=== PATIENT | female | born 1960 | race Caucasian/White ===

== ENCOUNTER → 2017-06-04 14:45 | Outpatient (CLI) | payer MEDICAID, SELFPAY ==
--- NOTE | 2017-06-04 14:52 | XR_ITS ---
EXAM: XR lumbar spine min 4V HISTORY: ITS.REASON: CHRONIC PAIN ORDERING PHYSICIAN: Nasreen Friedman PATIENT AGE: 56 years COMPARISON: None FINDINGS: Normal alignment. No fracture or dislocation. No lytic or blastic change. Mild degenerative disc disease from T12 to S1 with small anterior osteophytes. Facet arthritic changes are present at L4-L5 and L5-S1. IMPRESSION: Mild lumbar spondylosis with degenerative disc disease and osteophytosis
--- NOTE | 2017-06-04 14:52 | XR_ITS ---
EXAM: XR thoracic spine 3V HISTORY: ITS.REASON: CHRONIC PAIN COMPARISON: None FINDINGS: Normal alignment. No fracture or dislocation. No lytic or blastic change. There is mild multilevel spondylosis with decrease in the disc spaces and minimal osteophyte formation. There is minimal gentle thoracic curvature convex left. IMPRESSION: Mild thoracic spondylosis, no acute finding
== END ==
PROVIDERS: PCP Internal Medicine Adolescent Medicine; Visit Provider Nurse Practitioner Family
DX: G89.29 Other chronic pain (principal); M54.6 Pain in thoracic spine
CPT/HCPCS: 72072; 72110

== ENCOUNTER → 2017-06-05 09:20 | Outpatient (CLI) | payer MEDICAID, SELFPAY ==
[2017-06-05 10:43] LABS: Alanine Aminotransferase 62 U/L (12-78); Albumin Level 3.7 gm/dL (3.4-5.0); Albumin/Globulin Ratio 0.9 (1.1-1.8); Alkaline Phosphatase 142 U/L (46-116); Anion Gap 11.1 mEq/L (5-15); Aspartate Amino Transferase 33 U/L (15-37); Bilirubin,Total 0.3 mg/dL (0.2-1.0); Blood Urea Nitrogen 12 mg/dL (7-18); Calcium 9.1 mg/dL (8.5-10.1); Carbon Dioxide 34 mmol/L (21.0-32.0); Chloride 103 mmol/L (98-107); Chol/HDL Ratio 2.9 (1-3.5); Cholesterol 245 mg/dL (140-200); Creatinine,Serum 0.58 mg/dL (0.55-1.02); Estimated Glomerular Filt Rate 108 ml/min (>60); GFR (African American) 131 ML/MIN (>60); Globulin 4.2 gm/dl (1.3-3.2); Glucose 92 mg/dL (74-106); HDL Cholesterol 84 mg/dL (29-89); LDL Cholesterol 148 mg/dL (0-130); Potassium 4.1 mmoL/L (3.5-5.1); Sodium 144 mmol/L (136-145); Total Protein,Serum 7.9 gm/dL (6.4-8.2); Triglycerides 66 mg/dL (30-200); VLDL Cholesterol 13 mg/dL (0-40)
== END ==
PROVIDERS: Visit Provider Nurse Practitioner Family
DX: Z00.00 Encounter for general adult medical examination without abnormal findings (principal)
CPT/HCPCS: 36415; 80053; 80061

== ENCOUNTER → 2017-07-19 08:42 | Outpatient (CLI) | payer MEDICAID, SELFPAY ==
--- NOTE | 2017-07-19 08:53 | MR_ITS ---
MR lumbar spine wo con, MR 3-d myelogram/MRCP Ordering Physician: Nasreen Friedman Patient Age: 56 years: Female HISTORY: ITS.REASON: NEUROPATHY, LUMBAGO WITH SCIATICA Bilateral leg and feet burning tingling and pain symptoms for years. TECHNIQUE: Sagittal STIR, T1, T2, axial T1 and T2. On 1.5T Siemens wide bore MRI. 3-D MR myelogram image set obtained & performed on MRI workstation. Additional sagittal thin section T2 weighted dataset obtained from this latter acquisition as well (---76 CPT) COMPARISON : Plain films lumbar spine 06/04/2017 FINDINGS Vertebral bodies appear intact no compression fracture or lesion. L5/S1 asymmetric disc bulge most evident encroaching upon left foramen.. This along with moderate prominent facet hypertrophy yields moderate left recess and foraminal encroachment. L4/5. Disc bulge with additional focal disc herniation right paracentral. Generous focal effacement thecal sac on right and displaces nerve roots on right.. Cephalad extrusion of disc nicely seen on sagittal views,. Overall the resulting defect here measuring up to 16 mm height and over ~ 6 mm mm posterior protrusion.. Generous encroachment upon the right foramen as the disc appears to abuts the right L4 nerve root . Also generous facet hypertrophy narrows the spinal canal. Overall spinal stenosis most pronounced at this level . neurosurgical consult warranted primarily for findings at this level L3/4 foraminal disc bulge most evident towards the right foramen where there seems to be additional right lateral disc protrusion. This encroaches upon the right foramen and right L3 nerve root and may encroach upon the right ganglia.. Mild facet hypertrophy. Mild spinal stenosis L2/3. Mild diffuse disc bulge. Mild facet arthropathy. Borderline spinal stenosis. L1/2. Disc intact only question scant bulge the left T12/L1. Mild hard disc to the left indenting the left aspect of thecal sac. Axial image 5 T11/12 minimal mixed disc protrusion to the right slightly limiting thecal sac to the right 3-D MRI myelogram image set demonstrates the pronounced spinal stenosis at L4/5 and the mild spinal stenosis L 3/4. L2/3 there is only mild indentation with only slight narrowing the spinal canal. ... IMPRESSION.:... Multilevel degenerative disc & lumbar spondylosis Most significant findings highlighted below: L4/5 rightward disc herniation with cephalad extrusion of disc material . Yields prominent indentation upon thecal sac the right. Also yields prominent encroachment upon the right foramen. The disc herniation along with generous facet hypertrophy yields Prominent central canal stenosis most evident this level L3/4. Disc bulge with Additional Far Lateral Right Disc Protrusion.-Most evident at and lateral to the right foramen. Moderate facet hypertrophy . Features combine to yield Mild central canal stenosis L2/3 mild disc bulge and mild facet hypertrophy. Borderline spinal stenosis minimal findings at multiple other levels as in text.
== END ==
PROVIDERS: PCP Internal Medicine Adolescent Medicine; Visit Provider Nurse Practitioner Family
DX: M54.42 Lumbago with sciatica, left side (principal); G62.9 Polyneuropathy, unspecified
CPT/HCPCS: 72148; 76376

== ENCOUNTER → 2017-09-16 14:39 | Outpatient (POV) | payer MEDICAID, SELFPAY ==
[2017-09-16 14:47] VITALS: BP 169/86; PULSE 84; RESP 18; TEMP 36.6; O2SAT 98
--- NOTE | 2017-09-16 15:27 | HMH.PMCON ---
Assessment and Plan (1) Degenerative disc disease Current visit: Yes Status: Chronic Category: Medical (2) Lumbar radiculopathy Current visit: Yes Status: Chronic Category: Medical Code(s): M54.16 - Radiculopathy, lumbar region - Assessment and plan all Dx Assessment and Plan for all problems:: We will schedule L4-L5 lumbar epidural steroid injection. Neurosurgery has recommended this prior to deciding if the patient is a surgical candidate or not. Patient and I discussed the potential need for 3 lumbar epidural steroid injections. Patient understands. I will follow-up with this patient after her injection. Patient is not on any anticoagulation therapy. Patient's tried and failed physical therapy, anti-inflammatories, medications. This note was dictated using voice recognition software and may contain errors or omissions HPI - Data of Consult Consult date: 09/16/17 Requesting Physician: Riddhi Gonzáles APRN Primary Care Provider: Nasreen Friedman APRN - Consult Narrative Reason for consult: Low back pain History of present illness: Ms. Brooks is a 56 year old female resents today for consultation in regard to her low back and bilateral leg pain. Patient has been seen by Dr. Rosenbaum and was deemed a potential surgical candidate. However, Dr. Rosenbaum would like the patient to fill epidural steroid injections prior to deciding on surgery. Patient rates her pain a 6 out of 10 mostly in her low back and radiating into her bilateral legs. Patient does have nerve impingement at L4-L5. Patient has tried and failed medications, anti-inflammatories, physical therapy. Patient would like to try injections prior to deciding on surgery. Patient states her pain is constant, achy, sharp at times. Patient states that movement and standing for long periods of time make it worse while resting can make it better. CC: Riddhi Gonzáles APRN [facility] History I have reviewed the patient's past medical history: Yes Medical History: Reports:: Heart Murmur, Hypertension Denies:: Cancer, Diabetes Mellitus Type 1, Diabetes Mellitus Type 2, MRSA Other Surgeries: Yes: Cholecystectomy, Hysterectomy-Total Amputation: No Fractures: No - *Social History Educational Level: Completed High School Smoking Status: Former smoker Alcohol Intake: never Occupational Status: disabled Housing: house - Psychiatric History Expresses thoughts of harming self/others: None Suicide Plan Description: No Plan Review of Systems - Review of Systems ROS General: no recent weight change, no fever, no sleep disturbances Respiratory: no cough, no shortness of air, no recurring pulmonary infections Cardiovascular/Peripheral Vascular: No chest pain, No palpitations, no edema, no shortness of breath. Gastrointestinal: no incontinence, normal bowel movements reported Genitourinary: no incontinence Musculoskeletal: Back pain, leg pain Psychiatric: normal mood/ affect Neurological: [denies weakness in extremities], [denies balance issues] Meds Home Medications Medication Instructions Recorded Confirmed Type Amlodipine Besylate [Amlodipine 10 mg PO DAILY 09/09/17 09/16/17 History 10mg Tab] Cetirizine HCl 10 mg PO DAILY 09/09/17 09/16/17 History Diclofenac Sodium [Diclofenac 75mg 75 mg PO BID 09/09/17 09/16/17 History Tab] Fluticasone Propionate [Flonase 2 spr NS DAILY 09/09/17 09/16/17 History 50mcg nasal spray 16gm] Gabapentin [Gabapentin 100mg Cap] 100 mg pe PO TID 09/09/17 09/16/17 History Venlafaxine HCl [Venlafaxine HCl 75 mg PO DAILY 09/09/17 09/16/17 History ER] cephALEXin [Keflex 500mg Cap] 500 mg PO BID 09/16/17 09/16/17 History Allergies Allergy/AdvReac Type Severity Reaction Status Date / Time No Known Allergies Allergy Verified 09/09/17 20:13 Objective Vital signs: Temp Pulse Resp BP Pulse Ox 97.8 F 84 18 169/86 98 09/16/17 14:47 09/16/17 14:47 09/16/17 14:47 09/16/17
--- NOTE | 2017-09-16 15:30 | P.CONS_ITS ---
Assessment and Plan (1) Degenerative disc disease Current visit: Yes Status: Chronic Category: Medical (2) Lumbar radiculopathy Current visit: Yes Status: Chronic Category: Medical Code(s): M54.16 - Radiculopathy, lumbar region - Assessment and plan all Dx Assessment and Plan for all problems:: We will schedule L4-L5 lumbar epidural steroid injection. Neurosurgery has recommended this prior to deciding if the patient is a surgical candidate or not. Patient and I discussed the potential need for 3 lumbar epidural steroid injections. Patient understands. I will follow-up with this patient after her injection. Patient is not on any anticoagulation therapy. Patient's tried and failed physical therapy, anti-inflammatories, medications. This note was dictated using voice recognition software and may contain errors or omissions HPI - Data of Consult Consult date: 09/16/17 Requesting Physician: Riddhi Gonzáles APRN Primary Care Provider: Nasreen Friedman APRN - Consult Narrative Reason for consult: Low back pain History of present illness: Ms. Brooks is a 56 year old female resents today for consultation in regard to her low back and bilateral leg pain. Patient has been seen by Dr. Rosenbaum and was deemed a potential surgical candidate. However, Dr. Rosenbaum would like the patient to fill epidural steroid injections prior to deciding on surgery. Patient rates her pain a 6 out of 10 mostly in her low back and radiating into her bilateral legs. Patient does have nerve impingement at L4-L5. Patient has tried and failed medications, anti-inflammatories, physical therapy. Patient would like to try injections prior to deciding on surgery. Patient states her pain is constant, achy, sharp at times. Patient states that movement and standing for long periods of time make it worse while resting can make it better. CC: Riddhi Gonzáles APRN [facility] History I have reviewed the patient's past medical history: Yes Medical History: Reports:: Heart Murmur, Hypertension Denies:: Cancer, Diabetes Mellitus Type 1, Diabetes Mellitus Type 2, MRSA Other Surgeries: Yes: Cholecystectomy, Hysterectomy-Total Amputation: No Fractures: No - *Social History Educational Level: Completed High School Smoking Status: Former smoker Alcohol Intake: never Occupational Status: disabled Housing: house - Psychiatric History Expresses thoughts of harming self/others: None Suicide Plan Description: No Plan Review of Systems - Review of Systems ROS General: no recent weight change, no fever, no sleep disturbances Respiratory: no cough, no shortness of air, no recurring pulmonary infections Cardiovascular/Peripheral Vascular: No chest pain, No palpitations, no edema, no shortness of breath. Gastrointestinal: no incontinence, normal bowel movements reported Genitourinary: no incontinence Musculoskeletal: Back pain, leg pain Psychiatric: normal mood/ affect Neurological: [denies weakness in extremities], [denies balance issues] Meds Home Medications Medication Instructions Recorded Confirmed Type Amlodipine Besylate [Amlodipine 10 mg PO DAILY 09/09/17 09/16/17 History 10mg Tab] Cetirizine HCl 10 mg PO DAILY 09/09/17 09/16/17 History Diclofenac Sodium [Diclofenac 75mg 75 mg PO BID 09/09/17 09/16/17 History Tab] Fluticasone Propionate [Flonase 2 spr NS DAILY 09/09/17 09/16/17 History 50mcg nasal spray 16gm] Gabapentin [Gabapentin 100mg Cap] 10
== END ==
PROVIDERS: PCP Nurse Practitioner Family; Visit Provider Clinical Nurse Specialist Family Health
DX: M54.16 Radiculopathy, lumbar region (principal)
CPT/HCPCS: 99202

== ENCOUNTER → 2017-11-04 14:04 | Outpatient (POV) | payer MEDICAID, SELFPAY ==
[2017-11-04 14:34] VITALS: BP 133/78; PULSE 73; RESP 18; O2SAT 98; BMI 36.2
--- NOTE | 2017-11-04 14:46 | HMH.PAINSOAP ---
[facility] Pain Management SOAP Note Subjective:: Patient is a pleasant 56-year-old white female who presents today for follow-up after lumbar epidural steroid injection. Patient states she got relief after her injection. Patient's nurse Dr. Rosenbaum wanted her to try injections prior to determining if she was a surgical candidate or not. Patient would like to try one more injection in order to rule out their benefit for her. She rates her pain a 6 out of 10 and states that it travels down both of her legs the worst being the right. Patient also having muscle spasms. Patient states they are worse at nighttime. Patient has not taken anything for this. Patient does not have any known allergies. ROS General: no recent weight change, no fever, no sleep disturbances Respiratory: no cough, no shortness of air, no recurring pulmonary infections Cardiovascular/Peripheral Vascular: No chest pain, No palpitations, no edema, no shortness of breath. Gastrointestinal: no incontinence, normal bowel movements reported Genitourinary: no incontinence Musculoskeletal: Back pain, leg pain Psychiatric: normal mood/ affect Neurological: [denies weakness in extremities], [denies balance issues] Objective:: Physical Exam General: Alert and oriented x3, no acute distress, pleasant and cooperative, [on room air] Lungs: Resps E/U, Symmetrical chest expansion, Eyes: PERRL Musculoskeletal: Flexion and extension of lumbar spine somewhat guarded secondary to pain, deep tendon reflexes normal, strength in upper and lower extremities [5/5], [abnormal gait noted] Neurological: speech clear, milk receiver equal, no gross sensory deficits Assessment:: Degenerative disc disease of lumbar spine with lumbar radiculopathy Plan:: We will schedule a repeat epidural injection we will do levels L3-L4 for the patient. Patient is not on any anticoagulation therapy. Patient's tried and failed physical therapy and anti-inflammatories, medications. This note was dictated using voice recognition software and may contain errors or omissions
--- NOTE | 2017-11-04 14:49 | P.CONS_ITS ---
[facility] Pain Management SOAP Note Subjective:: Patient is a pleasant 56-year-old white female who presents today for follow-up after lumbar epidural steroid injection. Patient states she got relief after her injection. Patient's nurse Dr. Rosenbaum wanted her to try injections prior to determining if she was a surgical candidate or not. Patient would like to try one more injection in order to rule out their benefit for her. She rates her pain a 6 out of 10 and states that it travels down both of her legs the worst being the right. Patient also having muscle spasms. Patient states they are worse at nighttime. Patient has not taken anything for this. Patient does not have any known allergies. ROS General: no recent weight change, no fever, no sleep disturbances Respiratory: no cough, no shortness of air, no recurring pulmonary infections Cardiovascular/Peripheral Vascular: No chest pain, No palpitations, no edema, no shortness of breath. Gastrointestinal: no incontinence, normal bowel movements reported Genitourinary: no incontinence Musculoskeletal: Back pain, leg pain Psychiatric: normal mood/ affect Neurological: [denies weakness in extremities], [denies balance issues] Objective:: Physical Exam General: Alert and oriented x3, no acute distress, pleasant and cooperative, [ on room air] Lungs: Resps E/U, Symmetrical chest expansion, Eyes: PERRL Musculoskeletal: Flexion and extension of lumbar spine somewhat guarded secondary to pain, deep tendon reflexes normal, strength in upper and lower extremities [5/5], [abnormal gait noted] Neurological: speech clear, human development professor equal, no gross sensory deficits Assessment:: Degenerative disc disease of lumbar spine with lumbar radiculopathy Plan:: We will schedule a repeat epidural injection we will do levels L3-L4 for the patient. Patient is not on any anticoagulation therapy. Patient's tried and failed physical therapy and anti-inflammatories, medications. This note was dictated using voice recognition software and may contain errors or omissions
== END ==
PROVIDERS: PCP Nurse Practitioner Family; Visit Provider Clinical Nurse Specialist Family Health
DX: M51.16 Intervertebral disc disorders with radiculopathy, lumbar region (principal)
CPT/HCPCS: 99213

== ENCOUNTER → 2017-11-22 07:27 | Outpatient (CLI) | payer MEDICAID, SELFPAY ==
[2017-11-22 08:47] LABS: Alanine Aminotransferase 57 U/L (12-78); Albumin Level 3.6 gm/dL (3.4-5.0); Alkaline Phosphatase 113 U/L (46-116); Anion Gap 10.2 mEq/L (5-15); Aspartate Amino Transferase 21 U/L (15-37); Bilirubin,Total 0.3 mg/dL (0.2-1.0); Blood Urea Nitrogen 20 mg/dL (7-18); Calcium 9.3 mg/dL (8.5-10.1); Carbon Dioxide 30 mmol/L (21.0-32.0); Chloride 106 mmol/L (98-107); Chol/HDL Ratio 3.2 (1-3.5); Cholesterol 208 mg/dL (140-200); Creatinine,Serum 0.75 mg/dL (0.55-1.02); Estimated Glomerular Filt Rate 80 ml/min (>60); GFR (African American) 97 ML/MIN (>60); Globulin 3.5 gm/dl (1.3-3.2); Glucose 98 mg/dL (74-106); HDL Cholesterol 65 mg/dL (29-89); LDL Cholesterol 125 mg/dL (0-130); Potassium 4.2 mmoL/L (3.5-5.1); Sodium 142 mmol/L (136-145); Total Protein,Serum 7.1 gm/dL (6.4-8.2); Triglycerides 88 mg/dL (30-200); VLDL Cholesterol 18 mg/dL (0-40)
== END ==
PROVIDERS: PCP Internal Medicine Adolescent Medicine; Visit Provider Nurse Practitioner Family
DX: Z00.00 Encounter for general adult medical examination without abnormal findings (principal); L60.9 Nail disorder, unspecified
CPT/HCPCS: 36415; 80053; 80061; 84443

== ENCOUNTER → 2017-12-10 10:14 | Outpatient (POV) | payer MEDICAID, SELFPAY ==
[2017-12-10 10:48] VITALS: BP 152/84; PULSE 79; RESP 18; TEMP 36.6; O2SAT 94; BMI 39.3
--- NOTE | 2017-12-10 11:03 | P.CONS_ITS ---
[facility] Pain Management SOAP Note Subjective:: Patient is a 57-year-old white female who presents today for follow-up. Patient is following up her first her second lumbar epidural steroid injection. Patient did not get any relief from this. Patient was seen by Dr. Rosenbaum and it was recommended she try epidural injections prior to any surgical intervention. Patient has not had any relief of her pain. I believe it would be beneficial of her to go back to Dr. Rosenbaum at this time and be reassessed. Patient also is talking about her thoracic spine hurting. We will order an x-ray. She rates her pain today an 8 out of 10. ROS General: no recent weight change, no fever, no sleep disturbances Respiratory: no cough, no shortness of air, no recurring pulmonary infections Cardiovascular/Peripheral Vascular: No chest pain, No palpitations, no edema, no shortness of breath. Gastrointestinal: no incontinence, normal bowel movements reported Genitourinary: no incontinence Musculoskeletal: Back pain, leg pain Psychiatric: normal mood/ affect Neurological: [denies weakness in extremities], [denies balance issues] Objective:: Physical Exam General: Alert and oriented x3, no acute distress, pleasant and cooperative, [on room air] Lungs: Resps E/U, Symmetrical chest expansion Eyes: PERRL Musculoskeletal: Flexion and extension of lumbar spine somewhat guarded secondary to pain, deep tendon reflexes normal, strength in upper and lower extremities [5/5], antalgic gait noted Neurological: speech clear, activities specialist equal, no gross sensory deficits Assessment:: Degenerative disc disease lumbar spine with lumbar radiculopathy Plan:: Given the patient's knee pain in the thoracic spine we will order an x-ray and review this. We will also set up a return appointment with her with Dr. Rosenbaum. I will follow-up with this patient on an as-needed basis. This note was dictated using voice recognition software and may contain errors or omissions
--- NOTE | 2017-12-10 11:23 | XR_ITS ---
EXAM: XR thoracic spine 3V HISTORY: ITS.REASON: UPPER BACK PAIN Comparison: 06/04/2017 FINDINGS: Normal alignment. No fracture or dislocation. No lytic or blastic change. There is minimal thoracic curvature convex left. Mild degenerative changes are present in the midthoracic spine. IMPRESSION: Minimal levocurvature of the thoracic spine with mild thoracic spondylosis, no acute finding
== END ==
PROVIDERS: PCP Internal Medicine Adolescent Medicine; Visit Provider Clinical Nurse Specialist Family Health
DX: M51.16 Intervertebral disc disorders with radiculopathy, lumbar region (principal)
CPT/HCPCS: 72072; 99213

== ENCOUNTER → 2017-12-17 11:00 | Outpatient (POV) | payer MEDICAID, SELFPAY ==
[2017-12-17 11:24] VITALS: BP 126/61; PULSE 75; RESP 18; O2SAT 97; BMI 35.9
--- NOTE | 2017-12-17 11:40 | HMH.PAINSOAP ---
[facility] Pain Management SOAP Note Subjective:: Patient is a pleasant 57-year-old white female who presents today for follow-up. Patient and I had a long discussion about treatment options. Patient has had epidural injections with no relief. Patient seen Dr. Rosenbaum in the past and he wanted her to fill injections prior to making any decisions moving forward. Patient does have an MRI showing both bulging and herniated disks along with spondylosis. Patient and I discussed utilizing both traction and physical therapy and potentially try medial branch blocks. Patient is interested in this. She rates her pain a 6 out of 10 today. ROS General: no recent weight change, no fever, no sleep disturbances Respiratory: no cough, no shortness of air, no recurring pulmonary infections Cardiovascular/Peripheral Vascular: No chest pain, No palpitations, no edema, no shortness of breath. Gastrointestinal: no incontinence, normal bowel movements reported Genitourinary: no incontinence Musculoskeletal: Back pain Psychiatric: normal mood/ affect Neurological: [denies weakness in extremities], [denies balance issues] Objective:: Physical Exam General: Alert and oriented x3, no acute distress, pleasant and cooperative, [on room air] Lungs: Resps E/U, Symmetrical chest expansion, Eyes: PERRL Musculoskeletal: Flexion and extension of lumbar spine somewhat guarded secondary to pain, deep tendon reflexes normal, strength in upper and lower extremities [5/5], slightly antalgic gait noted. Patient has a positive Kemps test of the lower lumbar spine bilaterally Neurological: speech clear, suction operator equal, no gross sensory deficits Assessment:: Degenerative disc disease of the lumbar spine with spondylosis Plan:: We will schedule medial branch block/facet joint injection L3-L4 L4-L5 L5-S1 bilaterally. Patient is not on any blood thinner. Patient has tried 2 epidurals with no success. I believe it would be beneficial just to try a medial branch block prior to going back to neurosurgery. We will also order physical therapy and traction for the patient. I will follow-up with the patient after her injection. This note was dictated using voice recognition software and may contain errors or omissions
== END ==
PROVIDERS: PCP Internal Medicine Adolescent Medicine; Visit Provider Clinical Nurse Specialist Family Health
DX: M51.36 Other intervertebral disc degeneration, lumbar region (principal); M47.896 Other spondylosis, lumbar region
CPT/HCPCS: 99213

== ENCOUNTER 2017-12-19 09:07 | Outpatient (RCR) | payer MEDICAID, SELFPAY ==
--- NOTE | 2017-12-19 10:55 | HMH.PTOPEV ---
PT Outpatient Evaluation Rehab PT Outpatient Evaluation Start: 12/19/17 09:24 Freq: Status: Active Protocol: Document 12/19/17 10:47 ZA (Rec: 12/19/17 10:55 PHOBAYLEE [id number]) Electronically Signed By Travis Alcala, PT 12/19/17 10:47 Outpatient Therapy Subjective History Subjective History Pt is 57 yowf who presents with c/o chronic LBP x ~ 2-3 yrs with gradually increasing symptoms. She reports pain is worse with walking and sitting . She also reports pain in the right LE intermittently feels like burnin and stingin. She had MRI performed which shows multiple lumbar disc bulges L3-S1, with L4/5 level being the worst. She has had multiple epidural injections without consistent relief. Pt reports no PMH but is a poor historian. Chief Complaint Pain Symptom Type Burning Symptoms Relieved By Rest/Positioning Symptoms Aggravated By Sitting Physical Activity Walking Prior Functional Limitations None Current Functional Limitations Sitting Walking Symptom Description Intermittent Level of pain today (0-10) 4 Pain scale - at its worst (0-10) 9 Lumbopelvic Eval Palapation tenderness bilateral lumbar spinal tenderness Yes Accessory Movement L-spine Vertebrae Accessory Movements Central P/A Raymond that Elicit Symptoms Right P/A Raymond Left P/A Raymond L3 bilateral L4 bilateral L5 bilateral S1 bilateral Range of Motion Lumbar Spine Active Flexion Range of 0-55 Motion (degrees) Lumbar Spine Active Extension Range of 0-15 Motion (degrees) Left Lumbar Spine Lateral Flexion Active 0-20 Range of Motion (degrees) Right Lumbar Spine Lateral Flexion 0-20 Active Range of Motion (degrees) Manual Muscle Test Bilateral Knee Extension Strength Grade 5 Normal Knee Flexion Strength Grade 5 Normal Hip Flexion Strength Grade 5 Normal Hip Abduction Strength Grade 5 Normal Hip Adduction Strength Grade 5 Normal Hip External Rotation Strength Grade 5 Normal Hip Internal Rotation Strength Grade 5 Normal Hip Extension Strength Grade 5 Normal
== END 2017-12-19 09:08 | disposition home or self-care (01) ==
LOC: PT 09:07
PROVIDERS: PCP Internal Medicine Adolescent Medicine; Visit Provider Clinical Nurse Specialist Family Health
DX: M54.5 Low back pain (principal)
CPT/HCPCS: 97163

== ENCOUNTER → 2018-01-07 12:34 | Outpatient (CLI) | payer MEDICAID, SELFPAY ==
--- NOTE | 2018-01-07 12:36 | XR_ITS ---
XR wrist RT min 3V HISTORY ITS.REASON: right wrist pain ORDERING PHYSICIAN: Jd Schulz MD PATIENT AGE: 57 years Comparison: None FINDINGS: No fracture or dislocation. No lytic or blastic change. There is normal mineralization.. There are mild osteoarthritic changes at the scaphotrapezium joint and first metacarpocarpal joint. No lytic or blastic change. No erosive change. IMPRESSION: Mild osteoarthritis
--- NOTE | 2018-01-07 12:36 | XR_ITS ---
XR wrist LT min 3V HISTORY ITS.REASON: left wrist pain ORDERING PHYSICIAN: Jd Schulz MD PATIENT AGE: 57 years Comparison: None FINDINGS: No fracture or dislocation. No lytic or blastic change. There is normal mineralization.. There are mild osteoarthritic changes at the scaphotrapezium joint and first metacarpal carpal joint. No lytic or blastic change. IMPRESSION: Mild osteoarthritis
== END ==
PROVIDERS: PCP Nurse Practitioner Family; Visit Provider Orthopaedic Surgery
DX: M25.532 Pain in left wrist (principal); M25.531 Pain in right wrist
CPT/HCPCS: 73110

== ENCOUNTER 2018-01-08 11:36 | Outpatient (RCR) | payer MEDICAID, SELFPAY | END 2018-01-08 11:37 | disposition home or self-care (01) | LOC: PT 11:36 | PROVIDERS: PCP Nurse Practitioner Family; Visit Provider Orthopaedic Surgery | DX: G56.03 Carpal tunnel syndrome, bilateral upper limbs (principal) ==

== ENCOUNTER → 2018-01-09 13:19 | Outpatient (POV) | payer MEDICAID, SELFPAY | PROVIDERS: Visit Provider Neurological Surgery | DX: Z00.00 Encounter for general adult medical examination without abnormal findings (principal) ==

== ENCOUNTER → 2018-01-27 08:40 | Outpatient (POV) | payer MEDICAID, SELFPAY ==
--- NOTE | 2018-01-27 09:09 | P.CONS_ITS ---
[facility] Pain Management SOAP Note Subjective:: Is a pleasant 57-year-old white female who presents today for follow-up after L3-L4 L4-L5 L5-S1 medial branch block/facet joint injection. Patient is doing extremely well stating she got up to 90% relief with her injection. Patient is still having relief of her low back pain. Patient would like to repeat this and potentially move forward to a rhizotomy. Patient does have an MRI scheduled and an appointment with Dr. Rosenbaum for a surgical consultation however she would like to postpone surgery if possible through the [facility]. Patient rates her pain a 3 out of 10. ROS General: no recent weight change, no fever, no sleep disturbances Respiratory: no cough, no shortness of air, no recurring pulmonary infections Cardiovascular/Peripheral Vascular: No chest pain, No palpitations, no edema, no shortness of breath. Gastrointestinal: no incontinence, normal bowel movements reported Genitourinary: no incontinence Musculoskeletal: Back pain Psychiatric: normal mood/ affec Neurological: [denies weakness in extremities], [denies balance issues] Objective:: Physical Exam General: Alert and oriented x3, no acute distress, pleasant and cooperative, [on room air] Lungs: Resps E/U, Symmetrical chest expansion, Eyes: PERRL Musculoskeletal: Flexion and extension of lumbar spine somewhat guarded secondary to pain, deep tendon reflexes normal, strength in upper and lower extremities [5/5], antalgic gait noted, positive facet loading lumbar spine bilaterally, positive Kemps test Neurological: speech clear, 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 I believe it would be bene ficial. Patient may be a candidate for rhizotomy in the future. Patient's not on any anticoagulation therapy. Patient is continuing a home stretching regimen. Patient is on anti-inflammatories. I will follow-up with the patient after her injections. This note was dictated using voice recognition software and may contain errors or omissions
[2018-01-27 11:27] VITALS: BP 131/94; PULSE 98; RESP 18; O2SAT 99; BMI 35.9
== END ==
PROVIDERS: PCP Internal Medicine Adolescent Medicine; Visit Provider Clinical Nurse Specialist Family Health
DX: M51.36 Other intervertebral disc degeneration, lumbar region (principal); M47.896 Other spondylosis, lumbar region; M54.06 Panniculitis affecting regions of neck and back, lumbar region
CPT/HCPCS: 99213

== ENCOUNTER → 2018-01-31 12:40 | Outpatient (CLI) | payer MEDICAID, SELFPAY ==
--- NOTE | 2018-01-31 12:42 | MR_ITS ---
MR lumbar spine wo con, MR 3-d myelogram/MRCP HISTORY: Bilateral LBP. RT foot stinging and burning. After sitting burning and stinging in RT leg. ITS.REASON: LOW BACK AND LEG PAIN ORDERING PHYSICIAN: Avni Rosenbaum PATIENT AGE: 57 years Comparison: 07/19/2017 TECHNIQUE: Standard multiplanar multiecho sequences are performed without contrast. 3-D MIP and myelographic images are also rendered and reviewed FINDINGS: There is normal alignment. The spinal cord ends at the L1 level. T12-L1: Minimal left paracentral disc protrusion with minimal left lateral recess narrowing. Degenerative disc disease. L1-L2: Minimal central disc protrusion with degenerative disc disease. No impingement. L2-L3: Degenerative disc disease with bulging disc along facet ligamentum hypertrophy with mild bilateral lateral recess and foraminal narrowing. L3-L4: Degenerative disc disease with bulging disc with facet and ligamentum flavum hypertrophy and the bulging disc is slightly eccentric toward the right. There is bilateral lateral recess and foraminal narrowing. L4-L5: Degenerative disc disease with bulging disc along with a right paracentral extruded herniated disc with superior extrusion of the herniated disc causing right lateral recess and right foraminal narrowing and impinging upon the L5 nerve root. L5-S1: Degenerative disc disease with bulging disc IMPRESSION: 1. Right paracentral extruded herniated disc with superior extrusion of the disc as described above overall not significantly changed 2. Multilevel lumbar spondylosis with degenerative disc disease, bulging disc, and facet and ligamentum flavum hypertrophy with lateral recess and foraminal narrowing. Please see above for detailed description at each level
== END ==
PROVIDERS: PCP Nurse Practitioner Family; Visit Provider Neurological Surgery
DX: M54.5 Low back pain (principal); M79.606 Pain in leg, unspecified
CPT/HCPCS: 72148; 76376

== ENCOUNTER → 2018-05-01 11:06 | Outpatient (CLI) | payer MEDICAID, SELFPAY ==
[2018-05-01 11:23] LABS: Basophils % 0.5 % (0.1-2.0); Eosinophils # 0.2 K/mm3 (0.0-0.4); Eosinophils % 2.8 % (0.1-12.0); Hematocrit 39.7 % (37.0-47.0); Lymphocytes # 1.7 K/mm3 (0.7-4.5); Lymphocytes % 28.6 % (10-50); Mean Corpuscular HGB Conc 32.9 g/dL (31.8-35.4); Mean Corpuscular Volume 85.1 fl (81-99); Mean Platelet Volume 7.3 fl (7.4-10.4); Monocytes # 0.4 K/mm3 (0.1-1.0); Neutrophils # 3.6 K/mm3 (1.8-7.8); Neutrophils % 61.1 % (37.0-80.0); Platelet Count 307 K/mm3 (142-424); Red Blood Count 4.66 M/mm3 (4.20-5.40); Red Cell Distribution Width 13.1 % (11.5-17.5); White Blood Count 5.9 K/mm3 (4.8-10.8)
[2018-05-01 12:37] LABS: Anion Gap 11.9 mEq/L (5-15); Blood Urea Nitrogen 17 mg/dL (7-18); Calcium 9.5 mg/dL (8.5-10.1); Carbon Dioxide 31 mmol/L (21.0-32.0); Chloride 103 mmol/L (98-107); Creatinine,Serum 0.56 mg/dL (0.55-1.02); Estimated Glomerular Filt Rate 112 ml/min (>60); GFR (African American) 135 ML/MIN (>60); Glucose 87 mg/dL (74-106); Potassium 3.9 mmoL/L (3.5-5.1); Sodium 142 mmol/L (136-145)
== END ==
PROVIDERS: Visit Provider Orthopaedic Surgery
DX: Z01.818 Encounter for other preprocedural examination (principal); G56.02 Carpal tunnel syndrome, left upper limb
CPT/HCPCS: 36415; 80048; 85025

== ENCOUNTER → 2018-06-24 10:01 | Outpatient (CLI) | payer MEDICAID, SELFPAY ==
--- NOTE | 2018-06-24 10:07 | XR_ITS ---
XR foot wt bearing LT 3V HISTORY: Bilateral foot pain ITS.REASON: pain ORDERING PHYSICIAN: Kanika Williamson DPM PATIENT AGE: 57 years COMPARISON: Right foot same date FINDINGS: No fracture or dislocation. No lytic or blastic change. There is normal mineralization.. The joint spaces are well-preserved. No significant degenerative/arthritic changes. No erosive changes evident. There is a small spur of the calcaneus at insertion of plantar tendon and there is a tiny focal calcification within the Achilles tendon near the insertion. There is mild flattening of the plantar arch. IMPRESSION: Mild pes planus and calcaneal spur as noted
--- NOTE | 2018-06-24 10:07 | XR_ITS ---
XR foot wt bearing RT 3V HISTORY: Bilateral foot pain ITS.REASON: pain ORDERING PHYSICIAN: Kanika Williamson DPM PATIENT AGE: 57 years COMPARISON: Left foot same date FINDINGS: The tarsal bones appear grossly normal except for mild sclerotic change of the anterior aspect of the second cuneiform bone at the articulation with the base of the second metatarsal. This could possibly represent focal aseptic necrosis of the second cuneiforms bone or minor posttraumatic change. The metatarsals and all phalanges appear intact. There is a moderate size spur calcaneal spur at insertion of plantar tendon with a tiny spur at insertion of Achilles tendon. Flattening of the plantar arch. IMPRESSION: . 1. Mild sclerotic change of the second cuneiforms bone with possible aseptic necrosis versus posttraumatic change versus osteoarthritic change at the tarsometatarsal articulation 2. Mild pes planus and calcaneal spurs as noted.
== END ==
PROVIDERS: PCP Internal Medicine Adolescent Medicine; Visit Provider Podiatrist
DX: M79.672 Pain in left foot (principal)
CPT/HCPCS: 73630

== ENCOUNTER 2018-07-02 09:30 | Outpatient (RCR) | payer MEDICAID, SELFPAY ==
--- NOTE | 2018-06-09 10:07 | HMH.PTOPEV ---
PT Outpatient Evaluation Rehab PT Outpatient Evaluation Start: 06/09/18 09:47 Freq: Status: Active Protocol: Document 06/09/18 09:57 CARLOSAISHWARYA (Rec: 06/09/18 10:07 VIOLA [id number]) Electronically Signed By Avni Martino, PT 06/09/18 09:57 Outpatient Therapy Subjective History Subjective History This is the initial outpatient physical therapy evaluation for Sharlene Brooks. Pt is a 57 y /o female referred to PT for c /o Mid thoracis wolfgang scapular pain. Pt reports pain began insidiously ~ 2-3 years ago. Pt reprots the pain is intermittant and does not know any aggravating factors. Chief Complaint Pain Stiff Symptom Type Ache Symptoms Relieved By Nothing Prior Functional Limitations None Current Functional Limitations None Symptom Description Intermittent Level of pain today (0-10) 0 Pain scale - at its best (0-10) 0 Pain scale - at its worst (0-10) 2 Cervical Eval Palpation Cervical/Thoracic Palpation Findings None/Normal Posture Head/C-Spine Posture Sitting Position Extended C-Spine Flattened Head/C-Spine Posture Standing Position C-Spine Flattened Flexibility Deficits Upper Trapezius Muscle Length (R) Moderate Tightness (L) Moderate Tightness Passive Joint Mobility Cervical PIVM Dec: R C2/3 L C2/3 R C3/4 L C3/4 R C4/5 L C4/5 R C5/6 L C5/6 R C6/7 L C6/7 R C7/T1 L C7/T1 Special Test C-Spine Foraminal Compression (Spurling) Negative Left Test Negative Right C-Spine Foraminal Distraction Test Negative C-Spine Compression Test Negative Left Shoulder/Elbow Eval Shoulder Objective Measurements Posture Shoulder Posture Sitting Position (L) Rounded (R) Rounded Shoulder Posture Standing Position (L) Rounded (R) Rounded Scapula Posture Sitting Position (L) Protracted (R) Protracted Scapular Posture Standing Position (L) Protracted (R) Protracted Elbow Objective Measurements Lumbopelvic Eval Posture
== END 2018-07-02 09:35 | disposition home or self-care (01) ==
LOC: PT 09:30
PROVIDERS: Visit Provider Nurse Practitioner Family
DX: M54.6 Pain in thoracic spine (principal)
CPT/HCPCS: 97010; 97014; 97110; 97163; G0283

== ENCOUNTER → 2018-10-09 16:20 | Outpatient (CLI) | payer MEDICAID, SELFPAY ==
[2018-10-09 17:46] LABS: Alanine Aminotransferase 49 U/L (12-78); Albumin Level 3.8 gm/dL (3.4-5.0); Albumin/Globulin Ratio 1.2 (1.1-1.8); Alkaline Phosphatase 175 U/L (46-116); Anion Gap 13.4 mEq/L (5-15); Aspartate Amino Transferase 23 U/L (15-37); Bilirubin,Total 0.6 mg/dL (0.2-1.0); Blood Urea Nitrogen 9 mg/dL (7-18); Calcium 9.4 mg/dL (8.5-10.1); Carbon Dioxide 28 mmol/L (21.0-32.0); Chloride 104 mmol/L (98-107); Chol/HDL Ratio 2.8 (1-3.5); Cholesterol 145 mg/dL (140-200); Creatinine,Serum 0.68 mg/dL (0.55-1.02); Estimated Glomerular Filt Rate 90 ml/min (>60); GFR (African American) 108 ML/MIN (>60); Globulin 3.3 gm/dl (1.3-3.2); Glucose 89 mg/dL (74-106); HDL Cholesterol 52 mg/dL (29-89); LDL Cholesterol 74 mg/dL (0-130); Potassium 3.4 mmoL/L (3.5-5.1); Sodium 142 mmol/L (136-145); Thyroid Stimulating Hormone 3.15 uIU/ml (0.358-3.740); Total Protein,Serum 7.1 gm/dL (6.4-8.2); Triglycerides 95 mg/dL (30-200); VLDL Cholesterol 19 mg/dL (0-40)
== END ==
PROVIDERS: Visit Provider Nurse Practitioner Family
DX: Z00.00 Encounter for general adult medical examination without abnormal findings (principal); E78.2 Mixed hyperlipidemia; R79.89 Other specified abnormal findings of blood chemistry
CPT/HCPCS: 36415; 80053; 80061; 84443

== ENCOUNTER → 2018-11-10 16:56 | Outpatient (CLI) | payer MEDICAID, SELFPAY ==
--- NOTE | 2018-11-10 17:05 | MM_ITS ---
PROCEDURE: MM DIG SCREENING MAMM BI W/CAD CLINICAL INDICATION: SCREENING There is no personal or family history of breast cancer COMPARISON: No exams were available for comparison TECHNIQUE: Standard CC and MLO images were obtained. R2 CAD reviewed. FINDINGS: Scattered fibroglandular densities are seen in the subareolar regions and central portions of both breasts. There is a possible asymmetric density just deep to the nipple right breast best appreciated on the MLO view. It appears less worrisome on the CC view but would recommend the patient return for spot compression views and ultrasound may be necessary as well. There is a small benign-appearing nodular density upper-outer quadrant right breast likely a small cyst or intramammary node. Benign-appearing microcalcifications in each breast. There are no suspicious microcalcifications. IMPRESSION: Fibrofatty parenchyma with possible asymmetric density right breast BI-RAD Category: 0 Need Additional Imaging Evaluation FOLLOW-UP: IMM Immediate Follow-up Recommended (A letter has been sent to the patient regarding results of the study.) Dictated by: Dr. Ata Ayala MD 11/18/2018 16:55 Signed by: <Electronically signed by Dr. Ata Ayala MD in [place]> 11/18/2018 16:55
== END ==
PROVIDERS: PCP Nurse Practitioner Family; Visit Provider Nurse Practitioner Family
DX: Z12.31 Encounter for screening mammogram for malignant neoplasm of breast (principal)
CPT/HCPCS: 77067

== ENCOUNTER → 2018-11-27 13:34 | Outpatient (CLI) | payer MEDICAID, SELFPAY ==
--- NOTE | 2018-11-27 13:39 | MM_ITS ---
PROCEDURE: MM DIG MAMM DX UNILAT RT CAD CLINICAL INDICATION: ABNORMAL MAMM COMPARISON: MM DIG SCREENING MAMM BI W/CAD from 11/10/2018 US BREAST RT COMPLETE from 11/27/2018 TECHNIQUE: Spot compression views and right breast ultrasound FINDINGS: Right mammogram: The area of asymmetric density in the retroareolar region is less apparent on the spot compression views with no sonographic correlate and may be related to overlapping fibroglandular tissue. Recommend six-month sonographic and mammographic follow-up IMPRESSION: BI-RAD Category: 3 Probably Benign Finding Short Term Follow-up FOLLOW-UP: 6M 6Month Follow-up (A letter has been sent to the patient regarding results of the study.) Dictated by: Trent Santos MD 11/28/2018 16:06 Electronically signed by Trent Santos MD in [place] 11/28/2018 16:06
== END ==
PROVIDERS: PCP Internal Medicine Adolescent Medicine; Visit Provider Internal Medicine Adolescent Medicine
DX: R92.8 Other abnormal and inconclusive findings on diagnostic imaging of breast (principal); N63.10 Unspecified lump in the right breast, unspecified quadrant
CPT/HCPCS: 76641; 77065

== ENCOUNTER → 2019-02-24 11:47 | Outpatient (CLI) | payer OTHER, SELFPAY ==
[2019-02-24 14:35] LABS: Alanine Aminotransferase 39 U/L (12-78); Albumin Level 3.9 gm/dL (3.4-5.0); Albumin/Globulin Ratio 1.1 (1.1-1.8); Alkaline Phosphatase 179 U/L (46-116); Anion Gap 11.8 mEq/L (5-15); Aspartate Amino Transferase 24 U/L (15-37); Bilirubin,Total 0.4 mg/dL (0.2-1.0); Blood Urea Nitrogen 16 mg/dL (7-18); Calcium 9.5 mg/dL (8.5-10.1); Carbon Dioxide 33 mmol/L (21.0-32.0); Chloride 103 mmol/L (98-107); Chol/HDL Ratio 2.4 (1-3.5); Cholesterol 160 mg/dL (140-200); Creatinine,Serum 0.62 mg/dL (0.55-1.02); Estimated Glomerular Filt Rate 99 ml/min (>60); GFR (African American) 120 ML/MIN (>60); Globulin 3.5 gm/dl (1.3-3.2); Glucose 92 mg/dL (74-106); HDL Cholesterol 66 mg/dL (29-89); LDL Cholesterol 79 mg/dL (0-130); Potassium 4.8 mmoL/L (3.5-5.1); Sodium 143 mmol/L (136-145); Total Protein,Serum 7.4 gm/dL (6.4-8.2); Triglycerides 76 mg/dL (30-200); VLDL Cholesterol 15 mg/dL (0-40)
== END ==
PROVIDERS: Visit Provider Nurse Practitioner Family
DX: E78.2 Mixed hyperlipidemia (principal); I10 Essential (primary) hypertension
CPT/HCPCS: 36415; 80053; 80061

== ENCOUNTER → 2019-08-05 09:42 | Outpatient (CLI) | payer OTHER, SELFPAY ==
[2019-08-05 11:15] LABS: Alanine Aminotransferase 35 U/L (12-78); Albumin Level 4.4 g/dl (3.5-5.0); Albumin/Globulin Ratio 1.5 (1.1-1.8); Alkaline Phosphatase 157 U/L (38-126); Anion Gap 8.6 mEq/L (5-15); Aspartate Amino Transferase 32 U/L (14-36); Bilirubin,Total 0.3 mg/dl (0.2-1.3); Blood Urea Nitrogen 12 mg/dl (7-17); Calcium 9.8 mg/dl (8.4-10.2); Carbon Dioxide 31 mmol/L (22.0-30.0); Chloride 103 mmol/L (98-107); Chol/HDL Ratio 2.1 (1-3.5); Cholesterol 124 mg/dl (140-200); Estimated Glomerular Filt Rate 127 ml/min (>60); GFR (African American) 154 ML/MIN (>60); Globulin 2.9 g/dL (1.3-3.2); Glucose 108 mg/dl (74-100); HDL Cholesterol 60 mg/dl (40-60); Potassium 4.6 mmoL/L (3.5-5.1); Sodium 138 mmol/L (136-145); Total Protein,Serum 7.3 g/dl (6.3-8.2); Triglycerides 92 mg/dl (30-150); VLDL Cholesterol 18 mg/dL (0-40)
[2019-08-05 11:26] LABS: Direct LDL Cholesterol 70.93 mg/dL (100-129)
[2019-08-06 13:01] LABS: Hemoglobin A1C 5.8 % (4.0-6.0)
== END ==
PROVIDERS: Visit Provider Nurse Practitioner Family
DX: Z00.00 Encounter for general adult medical examination without abnormal findings (principal); E78.2 Mixed hyperlipidemia; R73.09 Other abnormal glucose
CPT/HCPCS: 36415; 80053; 80061; 83036

== ENCOUNTER → 2020-01-05 08:24 | Outpatient (CLI) | payer OTHER, SELFPAY ==
--- NOTE | 2020-01-05 08:27 | MM_ITS ---
PROCEDURE: MM DIG SCREENING MAMM BI W/CAD Digital Breast Tomosynthesis Included CLINICAL INDICATION: SCREENING There is no personal or family history of breast cancer. COMPARISON: MG MM DIG SCREENING MAMM BI W/CAD from 11/10/2018 MG MM DIG MAMM DX UNILAT RT CAD from 11/27/2018 TECHNIQUE: Standard CC and MLO images and 3D Tomosynthesis was obtained. R2 CAD reviewed. FINDINGS: Moderate scattered fibroglandular densities are seen in the central portions of both breasts. There are stable tiny benign-appearing nodular densities upper outer quadrant right breast. There are few benign-appearing microcalcifications in each breast. There is an area of possible architectural distortion with associated microcalcifications outer quadrant left breast best appreciated on the CC projection. This may be a summation shadow and chelle images are somewhat indeterminate. Recommend the patient return for spot compression views and ultrasound if this proves to be a true lesion. There are no suspicious microcalcifications. IMPRESSION: Moderate diffuse breast density with possible developing architectural distortion left breast BI-RAD Category: 0 Need Additional Imaging Evaluation FOLLOW-UP: IMM Immediate Follow-up Recommended (A letter has been sent to the patient regarding results of the study.) Dictated by: Dr. Ata Ayala MD 01/07/2020 10:27 Dr. Ata Ayala MD in [place] 01/07/2020 10:27
== END ==
PROVIDERS: PCP Internal Medicine Adolescent Medicine; Visit Provider Nurse Practitioner Family
DX: Z12.31 Encounter for screening mammogram for malignant neoplasm of breast (principal)
CPT/HCPCS: 77063; 77067

== ENCOUNTER → 2020-01-19 14:33 | Outpatient (CLI) | payer OTHER, SELFPAY ==
--- NOTE | 2020-01-19 14:37 | MM_ITS ---
PROCEDURE: MM DIG MAMM DX UNILAT LT CAD Digital Breast Tomosynthesis Included CLINICAL INDICATION: ABN MAMM COMPARISON: MG MM DIG SCREENING MAMM BI W/CAD from 11/10/2018 MG MM DIG MAMM DX UNILAT RT CAD from 11/27/2018 MG MM DIG SCREENING MAMM BI W/CAD from 01/05/2020 US US BREAST LT COMPLETE from 01/19/2020 TECHNIQUE: Standard CC and MLO images and 3D Tomosynthesis was obtained. R2 CAD reviewed. FINDINGS: A small area of possible architectural distortion outer quadrant is better seen on spot compression views. It shows irregular borders and there are few microcalcifications which have primarily benign appearance. It appears less worrisome on the spot MLO views. Ultrasound performed the same date showed no definite mass at this location. However in view of the fact that the lesion does not press out on the spot CC view and there is slightly more ill definition of the borders than was seen on the previous study 11/10/2018, I believe biopsy is indicated. IMPRESSION: Persistent asymmetric possible area of architectural distortion BI-RAD Category: 4 Suspicious Abnormality - Biopsy Considered FOLLOW-UP: BIO Biopsy Recommended (A letter has been sent to the patient regarding results of the study.) Dictated by: Dr. Ata Ayala MD 01/22/2020 09:37 Dr. Ata Ayala MD in [place] 01/22/2020 09:37
--- NOTE | 2020-01-19 14:37 | US_ITS ---
PROCEDURE: US BREAST LT COMPLETE CLINICAL INDICATION: ABN MAMM COMPARISON: US US BREAST RT COMPLETE from 11/27/2018 MG MM DIG MAMM DX UNILAT LT CAD from 01/19/2020 FINDINGS: Scanning in the area of interest upper-outer quadrant shows no definite abnormality. There are couple normal appearing nodes in the axilla. IMPRESSION: Essentially unremarkable targeted ultrasound however as recommended on the mammogram report biopsy is recommended Dictated by: Dr. Ata Ayala MD 01/22/2020 13:25 Dr. Ata Ayala MD in [place] 01/22/2020 13:25
== END ==
PROVIDERS: PCP Nurse Practitioner Family; Visit Provider Nurse Practitioner Family
DX: R92.8 Other abnormal and inconclusive findings on diagnostic imaging of breast (principal)
CPT/HCPCS: 76641; 77061; 77065; G0279

== ENCOUNTER → 2020-02-03 10:28 | Outpatient (CLI) | payer OTHER, SELFPAY ==
--- NOTE | 2020-02-03 | MM_ITS ---
PROCEDURE: MM DIG MAMM DX UNILAT LT CAD Digital Breast Tomosynthesis Included CLINICAL INDICATION: ABN MAMM OF LT BREAST COMPARISON: MG MM DIG MAMM DX UNILAT RT CAD from 11/27/2018 MG MM DIG SCREENING MAMM BI W/CAD from 01/05/2020 MG MM DIG MAMM DX UNILAT LT CAD from 01/19/2020 US US BREAST LT COMPLETE from 01/19/2020 TECHNIQUE: Standard CC and MLO images and 3D Tomosynthesis was obtained. R2 CAD reviewed. FINDINGS: Rolled views of the left breast both medially and laterally and magnification views were performed and there was no persistent or suspicious asymmetric density or architectural distortion. In view of this fact and the the negative targeted ultrasound exam of this breast area suggested biopsy is not indicated. 6 month follow-up left mammogram should to evaluate for interval stability. IMPRESSION: Negative additional problem solving views BI-RAD Category: 2 Benign Finding(s) FOLLOW-UP: 6M 6Month Follow-up (A letter has been sent to the patient regarding results of the study.) Dictated by: Dr. Ata Ayala MD 02/05/2020 11:53 Dr. Ata Ayala MD in [place] 02/05/2020 11:53
== END ==
PROVIDERS: PCP Nurse Practitioner Family; Visit Provider Internal Medicine Adolescent Medicine
DX: R92.8 Other abnormal and inconclusive findings on diagnostic imaging of breast (principal)
CPT/HCPCS: 77061; 77065; G0279

== ENCOUNTER → 2020-05-19 08:05 | Outpatient (CLI) | payer OTHER, SELFPAY ==
[2020-05-19 09:05] LABS: Chloride 106 mmol/L (98-107); Sodium 141 mmol/L (136-145)
[2020-05-19 09:06] LABS: Potassium 4.3 mmoL/L (3.5-5.1)
[2020-05-19 09:08] LABS: Alanine Aminotransferase 48 U/L (12-78); Albumin Level 4.3 g/dl (3.5-5.0); Albumin/Globulin Ratio 1.6 (1.1-1.8); Alkaline Phosphatase 161 U/L (38-126); Anion Gap 9.3 mEq/L (5-15); Aspartate Amino Transferase 39 U/L (14-36); Bilirubin,Total 0.5 mg/dl (0.2-1.3); Blood Urea Nitrogen 18 mg/dl (7-17); Calcium 9.7 mg/dl (8.4-10.2); Carbon Dioxide 30 mmol/L (22.0-30.0); Cholesterol 139 mg/dl (140-200); Estimated Glomerular Filt Rate 103 ml/min (>60); GFR (African American) 124 ML/MIN (>60); Globulin 2.7 g/dL (1.3-3.2); Glucose 119 mg/dl (74-100); Triglycerides 158 mg/dl (30-150); VLDL Cholesterol 32 mg/dL (0-40)
[2020-05-19 09:09] LABS: Chol/HDL Ratio 2.7 (1-3.5); HDL Cholesterol 52 mg/dl (40-60)
[2020-05-19 09:20] LABS: Direct LDL Cholesterol 60.36 mg/dL (100-129)
--- NOTE | 2020-05-19 13:35 | US_ITS ---
PROCEDURE: US BREAST LT COMPLETE CLINICAL INDICATION: ABN MAMM OF LT BREAST COMPARISON: US US BREAST LT COMPLETE from 01/19/2020 FINDINGS: Ultrasound survey of the breast shows diffuse rather uniform echogenicity. There is no suspicious cystic or solid mass and no findings to suggest architectural distortion. There are couple normal nodes in the axilla. IMPRESSION: Negative six-month follow-up ultrasound left breast and recommend the patient return to normal yearly screening mammography Dictated by: Dr. Ata Ayala MD 05/25/2020 07:28 Dr. Ata Ayala MD in [place] 05/25/2020 07:28
--- NOTE | 2020-05-19 13:53 | MM_ITS ---
PROCEDURE: MM DIG MAMM DX UNILAT LT CAD Digital Breast Tomosynthesis Included CLINICAL INDICATION: 3 MONTH F/U COMPARISON: MG MM DIG SCREENING MAMM BI W/CAD from 01/05/2020 MG MM DIG MAMM DX UNILAT LT CAD from 01/19/2020 MG MM DIG MAMM DX UNILAT LT CAD from 02/03/2020 US US BREAST LT COMPLETE from 05/19/2020 TECHNIQUE: Standard CC and MLO images and 3D Tomosynthesis was obtained. R2 CAD reviewed. Spot compression magnification views were obtained as well. FINDINGS: Moderate fibroglandular densities are seen in the subareolar region and central portion of the breast. There has been no change in the appearance of the microcalcifications described previously. There is no definite mass or architectural distortion. Ultrasound performed the same date showed no abnormality. IMPRESSION: Six-month follow-up views confirming no suspicious abnormality or suspicious microcalcifications and recommend the patient return to normal yearly screening BI-RAD Category: 2 Benign Finding(s) FOLLOW-UP: 6M 6Month Follow-up to return to normal yearly screening schedule (A letter has been sent to the patient regarding results of the study.) Dictated by: Dr. Ata Ayala MD 05/25/2020 07:26 Dr. Ata Ayala MD in [place] 05/25/2020 07:26
== END ==
PROVIDERS: PCP Nurse Practitioner Family; Visit Provider Nurse Practitioner Family
DX: R92.8 Other abnormal and inconclusive findings on diagnostic imaging of breast (principal); R73.03 Prediabetes; E78.2 Mixed hyperlipidemia
CPT/HCPCS: 36415; 76641; 77061; 77065; 80053; 80061; 83036; G0279

== ENCOUNTER → 2021-01-05 13:22 | Outpatient (CLI) | payer OTHER, SELFPAY ==
--- NOTE | 2021-01-05 13:25 | MM_ITS ---
PROCEDURE INFORMATION: Exam: MG Bilateral Screening 3D Mammography Exam date and time: 01/05/2021 1:25 PM Age: 60 years old Clinical indication: Encounter for screening mammogram for malignant neoplasm of breast TECHNIQUE: Imaging protocol: Bilateral screening tomosynthesis and 2D mammography including computer-aided detection (CAD) when performed. COMPARISON: 01/05/2020. 11/10/2018 FINDINGS: MAMMOGRAPHY: Breast composition: The breasts are heterogeneously dense, which may obscure small masses. Mass: No suspicious masses. Architectural distortion: No suspicious distortion. Calcifications: No suspicious calcifications. Asymmetric density: None. Skin thickening: None. Axillary adenopathy: None. IMPRESSION: No mammographic evidence of malignancy. Annual screening is recommended unless otherwise clinically indicated. ASSESSMENT: BI-RADS Category 1: Negative
== END ==
PROVIDERS: PCP Nurse Practitioner Family; Visit Provider Nurse Practitioner Family
DX: Z12.31 Encounter for screening mammogram for malignant neoplasm of breast (principal)
CPT/HCPCS: 77063; 77067

== ENCOUNTER → 2021-04-04 12:07 | Outpatient (CLI) | payer OTHER, SELFPAY ==
[2021-04-04 13:04] LABS: Basophils # 0.1 K/mm3 (0-0.2); Basophils % 0.9 % (0.1-2.0); Eosinophils # 0.1 K/mm3 (0.0-0.4); Eosinophils % 2.5 % (0.1-12.0); Hematocrit 41.1 % (37.0-47.0); Hemoglobin 13.3 g/dL (12.2-16.2); Lymphocytes # 1.5 K/mm3 (0.7-4.5); Lymphocytes % 27.4 % (10-50); Mean Corpuscular HGB Conc 32.3 g/dL (31.8-35.4); Mean Corpuscular Hemoglobin 28.4 pg (27.0-31.2); Mean Corpuscular Volume 87.9 fl (81-99); Monocytes # 0.4 K/mm3 (0.1-1.0); Monocytes % 6.5 % (1.7-9.3); Neutrophils # 3.5 K/mm3 (1.8-7.8); Neutrophils % 62.9 % (37.0-80.0); Platelet Count 302 K/mm3 (142-424); Red Blood Count 4.68 M/mm3 (4.20-5.40); Red Cell Distribution Width 13.7 % (11.5-17.5); White Blood Count 5.5 K/mm3 (4.8-10.8)
[2021-04-04 13:14] LABS: Hemoglobin A1C 5.7 % (4.0-6.0)
[2021-04-04 13:33] LABS: Alanine Aminotransferase 52 U/L (12-78); Albumin Level 4.8 g/dl (3.5-5.0); Albumin/Globulin Ratio 1.7 (1.1-1.8); Alkaline Phosphatase 164 U/L (38-126); Anion Gap 13.2 mEq/L (5-15); Aspartate Amino Transferase 46 U/L (14-36); Bilirubin,Total 0.5 mg/dl (0.2-1.3); Blood Urea Nitrogen 14 mg/dl (7-17); Carbon Dioxide 29 mmol/L (22.0-30.0); Chloride 101 mmol/L (98-107); Chol/HDL Ratio 2.5 (1-3.5); Cholesterol 163 mg/dl (140-200); Estimated Glomerular Filt Rate 126 ml/min (>60); GFR (African American) 153 ML/MIN (>60); Globulin 2.8 g/dL (1.3-3.2); Glucose 107 mg/dl (74-100); HDL Cholesterol 65 mg/dl (40-60); Potassium 4.2 mmoL/L (3.5-5.1); Sodium 139 mmol/L (136-145); Total Protein,Serum 7.6 g/dl (6.3-8.2); Triglycerides 133 mg/dl (30-150); VLDL Cholesterol 27 mg/dL (0-40)
[2021-04-04 13:44] LABS: Direct LDL Cholesterol 78.72 mg/dL (100-129)
[2021-04-04 13:50] LABS: 25-OH Vitamin D, Total 31.2 ng/mL (30-100)
[2021-04-04 14:03] LABS: Thyroid Stimulating Hormone 2.29 uIU/mL (0.465-4.68)
[2021-04-04 14:22] LABS: Vitamin B12 601 pg/mL (239-931)
== END ==
PROVIDERS: PCP Nurse Practitioner Family; Visit Provider Nurse Practitioner Family
DX: R06.02 Shortness of breath (principal); G62.9 Polyneuropathy, unspecified; E78.2 Mixed hyperlipidemia; R53.83 Other fatigue; E66.9 Obesity, unspecified; Z68.34 Body mass index [BMI] 34.0-34.9, adult
CPT/HCPCS: 36415; 80053; 80061; 82306; 82607; 83036; 84443; 85025

== ENCOUNTER 2021-05-05 13:00 | Outpatient (RCR) | payer OTHER, SELFPAY ==
--- NOTE | 2021-04-14 14:22 | HMH.OTOPEV ---
OT Inpatient Evaluation Rehab OT Outpatient Eval Start: 04/14/21 13:51 Freq: Status: Active Protocol: Document 04/14/21 13:51 HOMAR (Rec: 04/14/21 14:19 HOMAR [id number]) Electronically Signed By Dara Hernandez OT 04/14/21 13:51 Outpatient Therapy Subjective History Subjective History 60 year old female referred to skilled OP OT services for B UE CTS. Patient stated to have CTR on B UE in 2018 and 2019 with ~1 year of relief. 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 Patient stated the L hand is worst than the R hand. 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 [employer] Strength Symptom Type Throb,Sharp Symptoms Relieved By Nothing Symptoms Aggravated By Physical Activity,Lifting Prior Functional Limitations None Current Functional Limitations Lifting Symptom Description Constant but Variable Level of pain today (0-10) 5 Pain scale - at its best (0-10) 5 Pain scale - at its worst (0-10) 8 Wrist/Hand Eval Wrist Range of Motion Right Wrist Extension Active Range of Motion ( 55 degrees) Wrist Flexion Active Range of Motion ( 65 degrees) Wrist Radial Deviation Active Range of 20 Motion (degrees) Wrist Ulnar Deviation Active Range of 30 Motion (degrees) Left Wrist Extension Active Range of Motion ( 50 degrees) Wrist Flexion Active Range of Motion ( 30 degrees) Wrist Radial Deviation Active Range of 20 Motion (degrees) Wrist Ulnar Deviation Active Range of 30 Motion (degrees) Aviation [employer] Intelligence/Pinch Strength Right [employer] Strength Measurement (lbs) 30 Left [employer] Strength Measurement (lbs) 25 OT Outpatient Assessment Impairments Problems/Impairments Impaired Range of Motion, Impaired Strength,Subjective C /O Pain Prognosis Rehab Potential Good Clinical Impression Consistent with Diagnosis Yes Short Term Goals Number of Weeks 2 Increase Range of Motion Yes: AROM of R UE wrist flex: 70; ext: 60; L UE wrist flex: 40; ext: 60 Increase Strength L UE tow mate strength: 30# and R UE tow mate strength: 35# De
== END 2021-05-05 13:05 | disposition home or self-care (01) ==
LOC: OT 13:00
PROVIDERS: PCP Nurse Practitioner Family; Visit Provider Nurse Practitioner Family
DX: G56.03 Carpal tunnel syndrome, bilateral upper limbs (principal)
CPT/HCPCS: 97010; 97014; 97035; 97110; 97140; 97165; G0283

== ENCOUNTER → 2022-01-05 15:17 | Outpatient (CLI) | payer OTHER, SELFPAY ==
--- NOTE | 2022-01-05 15:41 | MM_ITS ---
PROCEDURE INFORMATION: Exam: MG Bilateral Screening 3D Mammography Exam date and time: 01/05/2022 3:33 PM Age: 61 years old Clinical indication: Screening examination. No family history of breast cancer. TECHNIQUE: Imaging protocol: Bilateral Screening tomosynthesis and 2D mammography including computer-aided detection (CAD) when performed. COMPARISON: 1. MG MM DIG SCREENING MAMM BI W/CAD 01/05/2021 1:33 PM 2. MG MM DIG MAMM DX UNILAT LT CAD 05/19/2020 1:49 PM 3. MG MM DIG MAMM DX UNILAT LT CAD 02/03/2020 12:17 PM FINDINGS: MAMMOGRAPHY: Breast composition: There are scattered areas of fibroglandular density. Mass: No suspicious mass. Architectural distortion: None. Calcifications: No suspicious calcifications. Asymmetric density: None. Skin thickening: None. Axillary adenopathy: None. IMPRESSION: No mammographic evidence of malignancy. Annual screening is recommended unless otherwise clinically indicated. ASSESSMENT: BI-RADS Category 1: Negative
== END ==
PROVIDERS: PCP Nurse Practitioner Family; Visit Provider Nurse Practitioner Family
DX: Z12.31 Encounter for screening mammogram for malignant neoplasm of breast (principal)
CPT/HCPCS: 77063; 77067

== ENCOUNTER → 2022-06-27 14:03 | Outpatient (POV) | payer OTHER, SELFPAY | PROVIDERS: Visit Provider Specialist/Technologist | DX: Z00.00 Encounter for general adult medical examination without abnormal findings (principal) ==